=== PATIENT | male | born 1980 | race African-American/Black ===

== ENCOUNTER 2017-05-18 15:47 | Inpatient (IN) | payer OTHER ==
[~2017-05-18] VITALS: Ht 182.9 cm; Wt 76.2 kg
[2017-05-18 18:10] LABS: HEMATOCRIT 43.7 % (38.0-50.0); MCH 32.2 PG (29.0-34.0); MCHC 34.6 G/DL (30.0-36.0); MCV 93.2 FL (86-99); PLATELET COUNT 190 K/uL (156-360); RBC DIS.WIDTH-CV 12.4 % (11.8-14.6); RBC DIS.WIDTH-SD 42.9 % (39-53); RED BLOOD COUNT 4.69 M/uL (4.00-5.50); WHITE BLOOD COUNT 6.8 K/uL (4.1-10.2)
[2017-05-18 18:24] LABS: CHLORIDE 106 mEq/L (99-109); POTASSIUM 3.6 mEq/L (3.7-5.4); SODIUM 141 mEq/L (136-147)
[2017-05-18 18:26] LABS: GLUCOSE 106 mg/dL (70-99)
[2017-05-18 18:27] LABS: ANION GAP 8 MEQ/L (2-14)
[2017-05-18 18:29] LABS: SERUM ETHYL ALCOHOL < 10 mg/dL
[2017-05-18 18:30] LABS: GFR ESTIMATE (CALCULATED) > 59 mL/min/
[2017-05-18 18:31] LABS: UREA NITROGEN (BUN) 14 mg/dL (9-23)
[2017-05-18 18:33] LABS: SALICYLATE < 5.0 MG/DL (15-30)
[2017-05-18 19:13] LABS: AMPHETAMINE NEGATIVE (500 ng/mL); BARBITURATES NEGATIVE (200 ng/mL); BENZODIAZEPINES NEGATIVE (150 ng/mL); COCAINE NEGATIVE (150 ng/mL); INTERNAL CONTROLS VALID? YES; METHADONE NEGATIVE (200 ng/mL); METHAMPHETAMINE NEGATIVE (500 ng/mL); OPIATES (MORPHINE) NEGATIVE (100 ng/mL); OXYCODONE NEGATIVE (100 ng/mL); PHENCYCLIDINE NEGATIVE (25 ng/mL); PROPOXYPHENE NEGATIVE (300 ng/mL); THC CANNABINOIDS NEGATIVE (50 ng/mL); TRICYCLIC ANTIDEPRESSANTS NEGATIVE (300 ng/mL)
[2017-05-19 07:38] VITALS: BP 109/56
[2017-05-19 15:25] VITALS: BP 104/55
[2017-05-20 07:47] VITALS: BP 88/54
[2017-05-20 11:50] VITALS: BP 138/62
[2017-05-20 15:37] VITALS: BP 138/81
[2017-05-21 07:53] VITALS: BP 111/77
[2017-05-21 10:48] VITALS: BP 115/69
[2017-05-21 16:22] VITALS: BP 108/57
[2017-05-22 07:21] VITALS: BP 103/55
[2017-05-22 11:21] VITALS: BP 112/59
[2017-05-22 16:23] VITALS: BP 103/65
[2017-05-23 07:54] VITALS: BP 120/63
[2017-05-24 07:42] VITALS: BP 105/60
[2017-05-24] MEDS ORDERED: TRILEPTAL600 MG PO (10:00)
[2017-05-24] MEDS ORDERED: FLUPHENAZINE HC10 MG PO (10:01)
[2017-05-24] MEDS ORDERED: TRILEPTAL150 MG PO (10:01)
[2017-05-24] MEDS ORDERED: RISPERDAL3 MG PO (10:02)
== END 2017-05-24 11:01 | disposition home or self-care (01) | DRG 885 ==
LOC: EME 15:47 → 1WEST 18:08 → EDOF 18:08 → 1WEST 18:58
PROVIDERS: Emergency Medicine
DX: F25.0 Schizoaffective disorder, bipolar type (principal); R45.851 Suicidal ideations; R45.850 Homicidal ideations
CPT/HCPCS: 80048; 85027; 90839; 99281; 99283; G0480; J1630; J2060

== ENCOUNTER 2017-06-02 11:50 | Emergency (ER) | payer OTHER ==
[~2017-06-02] VITALS: Ht 182.9 cm; Wt 76.3 kg
[~2017-06-02 11:50] MED LIST: FLUPHENAZINE HC10 MG PO; RISPERDAL3 MG PO; TRILEPTAL150 MG PO; TRILEPTAL300 MG PO; TRILEPTAL600 MG PO; VISTARIL50 MG PO
[2017-06-02 13:08] LABS: EOSINOPHIL (%) 0.3 % (0-5); HEMATOCRIT 41.9 % (38.0-50.0); IMMATURE GRANULOCYTE (%) 0.4 % (0.0-0.7); INSTRUMENT ABS NEUTROPHIL CT 5.5 K/uL; LYMPHOCYTE COUNT 0.7 K/uL (1.0-2.8); MCH 32.6 PG (29.0-34.0); MCHC 34.8 G/DL (30.0-36.0); MCV 93.5 FL (86-99); MEAN PLAT.VOLUME 9.7 uM^3 (9.0-12.4); MONOCYTE (%) 6.7 % (3-12); MONOCYTE COUNT 0.5 K/uL (0-0.8); NEUTROPHIL COUNT 5.5 K/uL (1.8-6.4); PLATELET COUNT 174 K/uL (156-360); RBC DIS.WIDTH-CV 12.1 % (11.8-14.6); RBC DIS.WIDTH-SD 42.2 % (39-53); RED BLOOD COUNT 4.48 M/uL (4.00-5.50); WHITE BLOOD COUNT 6.7 K/uL (4.1-10.2)
[2017-06-02 13:15] LABS: CHLORIDE 109 mEq/L (99-109); POTASSIUM 3.7 mEq/L (3.7-5.4); SODIUM 141 mEq/L (136-147)
[2017-06-02 13:17] LABS: GLUCOSE 98 mg/dL (70-99)
[2017-06-02 13:19] LABS: ANION GAP 8 MEQ/L (2-14)
[2017-06-02 13:20] LABS: SERUM ETHYL ALCOHOL < 10 mg/dL
[2017-06-02 13:21] LABS: GFR ESTIMATE (CALCULATED) > 59 mL/min/
[2017-06-02 13:22] LABS: UREA NITROGEN (BUN) 10 mg/dL (9-23)
[2017-06-02 23:40] LABS: BACTERIA NONE SEEN /HPF; EPITHELIAL CELLS RARE /HPF; MUCUS TRACE /LPF; RED BLOOD CELLS 0-5 /HPF (0-5); WHITE BLOOD CELLS 0-5 /HPF (0-5)
[2017-06-02 23:45] LABS: AMPHETAMINE NEGATIVE (500 ng/mL); BARBITURATES NEGATIVE (200 ng/mL); BENZODIAZEPINES PRESUMPTIVE POSITIVE (150 ng/mL); COCAINE NEGATIVE (150 ng/mL); INTERNAL CONTROLS VALID? YES; METHADONE NEGATIVE (200 ng/mL); METHAMPHETAMINE NEGATIVE (500 ng/mL); OPIATES (MORPHINE) NEGATIVE (100 ng/mL); OXYCODONE NEGATIVE (100 ng/mL); PHENCYCLIDINE NEGATIVE (25 ng/mL); PROPOXYPHENE NEGATIVE (300 ng/mL); THC CANNABINOIDS PRESUMPTIVE POSITIVE (50 ng/mL); TRICYCLIC ANTIDEPRESSANTS NEGATIVE (300 ng/mL)
[2017-06-02 23:46] LABS: ADD MEDTOX COMMENT Y
[2017-06-02 23:53] LABS: ADD MIUA? NO; BILIRUBIN NEGATIVE; BLOOD NEGATIVE; COLOR YELLOW ((YELLOW)); GLUCOSE (STRIP) NEGATIVE; KETONES NEGATIVE; LEUKOCYTES NEGATIVE; NITRITE NEGATIVE; PROTEIN (STRIP) NEGATIVE; SPECIFIC GRAVITY 1.018 (1.000-1.030); UROBILINOGEN 0.2 MG/DL (0.2-1.0)
[2017-06-03 00:37] LABS: BENZODIAZEPINES QUANT VALUE 0 NG/ML; BENZODIAZEPINES, URINE SCREEN Negative (200 ng/mL)
[2017-06-03 10:53] VITALS: BP 96/58
== END 2017-06-03 10:53 | disposition home or self-care (01) ==
LOC: EME 11:50
PROVIDERS: Emergency Medicine
DX: F25.0 Schizoaffective disorder, bipolar type (principal); F14.90 Cocaine use, unspecified, uncomplicated
CPT/HCPCS: 80048; 81003; 81015; 84999; 85025; 90832; 99281; 99285; G0480; J1630; J2060

== ENCOUNTER 2017-06-09 16:07 | Emergency (ER) | payer OTHER ==
[~2017-06-09] VITALS: Ht 182.9 cm; Wt 74.2 kg
[2017-06-09 16:59] LABS: HEMATOCRIT 44.3 % (38.0-50.0); MCH 32.6 PG (29.0-34.0); MCHC 34.8 G/DL (30.0-36.0); MCV 93.9 FL (86-99); MEAN PLAT.VOLUME 9.7 uM^3 (9.0-12.4); PLATELET COUNT 223 K/uL (156-360); RBC DIS.WIDTH-SD 41.6 % (39-53); RED BLOOD COUNT 4.72 M/uL (4.00-5.50); WHITE BLOOD COUNT 5.6 K/uL (4.1-10.2)
[2017-06-09 17:12] LABS: CHLORIDE 106 mEq/L (99-109); SODIUM 141 mEq/L (136-147)
[2017-06-09 17:14] LABS: GLUCOSE 107 mg/dL (70-99)
[2017-06-09 17:15] LABS: ANION GAP 11 MEQ/L (2-14)
[2017-06-09 17:17] LABS: GFR ESTIMATE (CALCULATED) > 59 mL/min/; SERUM ETHYL ALCOHOL 57 mg/dL
[2017-06-09 17:18] LABS: UREA NITROGEN (BUN) 18 mg/dL (9-23)
[2017-06-09 20:28] LABS: COCAINE ND (150 ng/mL); METHAMPHETAMINE ND (500 ng/mL); OPIATES (MORPHINE) ND (100 ng/mL); PHENCYCLIDINE ND (25 ng/mL); THC CANNABINOIDS ND (50 ng/mL)
[2017-06-09 20:29] LABS: AMPHETAMINE ND (500 ng/mL); BARBITURATES ND (200 ng/mL); BENZODIAZEPINES ND (150 ng/mL); INTERNAL CONTROLS VALID? ND; METHADONE ND (200 ng/mL); OXYCODONE ND (100 ng/mL); PROPOXYPHENE ND (300 ng/mL); TRICYCLIC ANTIDEPRESSANTS ND (300 ng/mL)
[2017-06-09 20:46] LABS: AMPHETAMINE NEGATIVE (500 ng/mL); BARBITURATES NEGATIVE (200 ng/mL); BENZODIAZEPINES NEGATIVE (150 ng/mL); COCAINE NEGATIVE (150 ng/mL); INTERNAL CONTROLS VALID? YES; METHADONE NEGATIVE (200 ng/mL); METHAMPHETAMINE NEGATIVE (500 ng/mL); OPIATES (MORPHINE) NEGATIVE (100 ng/mL); OXYCODONE NEGATIVE (100 ng/mL); PHENCYCLIDINE NEGATIVE (25 ng/mL); PROPOXYPHENE NEGATIVE (300 ng/mL); THC CANNABINOIDS NEGATIVE (50 ng/mL); TRICYCLIC ANTIDEPRESSANTS NEGATIVE (300 ng/mL)
[2017-06-10 00:41] VITALS: BP 100/58
== END 2017-06-10 00:44 ==
LOC: EME 16:07
PROVIDERS: Emergency Medicine
DX: R45.851 Suicidal ideations (principal); R45.850 Homicidal ideations; F25.0 Schizoaffective disorder, bipolar type; Z87.820 Personal history of traumatic brain injury; F42.9 Obsessive-compulsive disorder, unspecified
CPT/HCPCS: 80048; 85027; 90839; 99281; 99285; G0480

== ENCOUNTER 2017-06-25 21:21 | Emergency (ER) | payer OTHER ==
[~2017-06-25] VITALS: Ht 182.9 cm; Wt 74.4 kg
[2017-06-25 23:00] VITALS: BP 138/98
== END 2017-06-25 23:00 | disposition home or self-care (01) ==
LOC: EME 21:21
DX: F32.9 Major depressive disorder, single episode, unspecified (principal); F25.0 Schizoaffective disorder, bipolar type; Z87.820 Personal history of traumatic brain injury
CPT/HCPCS: 90832; 99281; 99284